=== PATIENT | female | born 1955 | race Caucasian/White ===

== ENCOUNTER 2020-08-05 09:55 | Outpatient (CLI) | payer MEDICARE ==
--- NOTE | 2020-08-05 12:01 | CT ---
CHEST CT WITH CONTRAST ABDOMEN CT WITH CONTRAST PELVIC CT WITH CONTRAST: HISTORY: Lumpectomy. Status post radiation and chemotherapy. Stage IV breast cancer. Correlation: None. COMPARISON: None. FINDINGS: Chest CT: Mediastinum: No mass, lymphadenopathy or hematoma. Aorta: Normal caliber aorta. No periaortic fat stranding. Heart: Normal heart size. No significant pericardial fluid. Small amount of anterior pericardial flui d is noted. Trachea and central bronchi: Patent. Pleural spaces: No significant pleural fluid. Right lung: Minimal dependent atelectatic changes. No suspicious masses or consolidation. Left lung:Minimal dependent atelectatic changes. There is bronchiectasis and increased soft tissue pr ominence involving the anterior left upper lobe. Post treatment changes are favored. Pneumothorax: None. Soft tissues: There is evidence of asymmetric edema and calcifications overlying the left breast pare nchyma as well as the dermis of the left breast. There is asymmetric increased soft tissue density deep to the left breast, along the expected region of the left pectoralis muscle. Abdomen CT: Gallbladder: Cholelithiasis without evidence of cholecystitis. Portal vein: Patent. Liver: Appropriate enhancement.. Spleen: Appropriate enhancement. Pancreas: Appropriate enhancement. Adrenal glands: Appropriate enhancement. Lymphadenopathy: No gastrohepatic, retrocrural or periportal lymphadenopathy. Kidneys: Symmetric enhancement. No obstructive uropathy. Mesentery: No mass, lymphadenopathy, free air or free fluid. Alimentary canal: Limited evaluation by the absence of oral contrast. No evidence of a bowel obstruct ion. Normal caliber appendix. Pelvis CT: No mass, lymphadenopathy, free air or free fluid. Urinary bladder is unremarkable. Uterus is surgically absent. Osseous structures: There are extensive destructive changes and fractures involving the anterior left first through eight h ribs. Additional erosive and destructive changes are noted in the medial left clavicle. Findings may represent post traumatic change versus osteonecrosis from radiation treatment. There is also irre gularity and sclerosis involving the left scapula. No evidence of a metastatic deposit in the thoracic or lumbar spine. No evidence of metastases within the bony pelvis. IMPRESSION: Evidence of left breast cancer with thickening of the dermis. Correlate for inflammatory breast cance r. There are abnormal soft tissue densities in the deep to the left breast at the region of the left pectoralis muscle with irregular appearance of multiple left ribs. Findings may represent posttr eatment or posttraumatic change.
[2020-08-05] MEDS ORDERED: Iopamidol 370 76% 100 ML VIAL ONE (13:50)
--- NOTE | 2020-08-05 14:37 | NM ---
NUCLEAR MEDICINE WHOLE BODY BONE SCAN: HISTORY: Stage IV breast cancer. Status post radiation therapy and chemotherapy. TECHNIQUE: Patient was administered 32.1 mCi of technetium 99m MDP intravenously. After 3 hour delay, whole body imaging was performed. COMPARISON: Prior images were performed in [place] and are not available. FINDINGS: Physiologic distribution of radiotracer. There is uptake in both shoulders. There is irregular radiot racer localization in the left hemithorax including the left scapula, left ribs and left clavicle. Correlation made with CT performed earlier today demonstrates erosive changes and remodeling. Multipl e old fractures are identified. Uptake in the right shoulder, due to degenerative change. Uptake in the right knee is also felt to be due to degenerative change. Mild uptake in the distal lumbar spine corresponds to degenerative changes with vacuum disc phenomeno n, osteophyte formation and endplate sclerosis. No scintigraphic evidence of a thoracic or lumbar spine metastatic deposit. IMPRESSION: 1. Extensive irregular radiotracer localization in the left hemithorax is presumed to be due to post treatment change. 2. No evidence of metastatic deposit in the remaining osseous structures. Transcribed Date/Time: 08/05/2020 3:16 PM
== END 2020-08-05 09:56 | disposition home or self-care (01) ==
LOC: CT 09:55 → NM 09:56
PROVIDERS: ATTEND Internal Medicine Hematology & Oncology
DX: C50.412 Malignant neoplasm of upper-outer quadrant of left female breast (principal); R92.2 Inconclusive mammogram; R93.89 Abnormal findings on diagnostic imaging of other specified body structures
CPT/HCPCS: 71260; 74177; 78306; A9503

== ENCOUNTER 2020-08-06 14:43 | Outpatient (CLI) | payer MEDICARE | END 2020-08-06 14:44 | disposition home or self-care (01) | LOC: ULT 14:43 | PROVIDERS: ATTEND Internal Medicine Hematology & Oncology | DX: Z51.11 Encounter for antineoplastic chemotherapy (principal); C50.412 Malignant neoplasm of upper-outer quadrant of left female breast; I08.1 Rheumatic disorders of both mitral and tricuspid valves; Z79.899 Other long term (current) drug therapy | CPT/HCPCS: 82565; 93306 ==

== ENCOUNTER 2020-10-30 09:55 | Outpatient (CLI) | payer MEDICARE | END 2020-10-30 09:56 | disposition home or self-care (01) | LOC: BICMAMMO 09:55 | PROVIDERS: ATTEND Internal Medicine Hematology & Oncology | DX: Z12.31 Encounter for screening mammogram for malignant neoplasm of breast (principal) | CPT/HCPCS: 77063; 77067 ==

== ENCOUNTER 2020-11-17 13:21 | Outpatient (CLI) | payer MEDICARE | END 2020-11-17 13:22 | disposition home or self-care (01) | LOC: ULT 13:21 | PROVIDERS: ATTEND Internal Medicine Hematology & Oncology | DX: Z51.11 Encounter for antineoplastic chemotherapy (principal); C50.412 Malignant neoplasm of upper-outer quadrant of left female breast; Z79.899 Other long term (current) drug therapy; I07.1 Rheumatic tricuspid insufficiency | CPT/HCPCS: 93306 ==

== ENCOUNTER 2021-11-26 09:00 | Outpatient (CLI) | payer MEDICARE | END 2021-11-26 09:01 | disposition home or self-care (01) | LOC: CT 09:00 | PROVIDERS: ATTEND Internal Medicine Hematology & Oncology | DX: C50.412 Malignant neoplasm of upper-outer quadrant of left female breast (principal) | CPT/HCPCS: 71260; 74177; 78306; 82565; A9503 ==

== ENCOUNTER 2021-12-25 12:28 | Outpatient (CLI) | payer MEDICARE | END 2021-12-25 12:29 | disposition home or self-care (01) | LOC: BICMAMMO 12:28 | PROVIDERS: ATTEND Internal Medicine Hematology & Oncology | DX: Z12.31 Encounter for screening mammogram for malignant neoplasm of breast (principal); Z85.3 Personal history of malignant neoplasm of breast; Z98.890 Other specified postprocedural states | CPT/HCPCS: 77063; 77067 ==

== ENCOUNTER 2022-03-26 15:21 | Emergency (ER) | payer MEDICARE ==
[2022-03-26 16:41] LABS: #Basophils 0.1 thou/uL (0.0-0.2); #Eosinphils 0.1 thou/uL (0.0-0.7); #Lymphocytes 1.1 thou/uL (1.20-3.40); #Monocytes 0.4 thou/uL (0.11-0.59); #Neutrophils 3.2 thou/uL (1.40-6.50); %Basophils 1.2 % (0.0-1.0); %Lymphocytes 22.3 % (21.0-51.0); %Monocytes 8.2 % (0.0-10.0); %Neutrophils 67.3 % (42.0-75.0); Hemoglobin 10.4 g/dL (12.0-16.0); Mean Corpuscular Hemoglobin 29.1 pg (27.0-31.0); Mean Corpuscular Volume 85.6 fL (78.0-98.0); Platelet Count 262 thou/uL (130-400); RBC Distribution Width 11.8 % (11.5-14.5); Red Blood Cell (RBC) Count 3.57 mill/uL (4.20-5.40); White Blood Cell (WBC) Count 4.8 thou/uL (4.8-10.8)
[2022-03-26 17:28] LABS: ALT (SGPT) 17 U/L (8-55); AST (SGOT) 18 U/L (5-34); Albumin 4.4 g/dL (3.4-4.8); Alkaline Phosphatase 52 U/L (40-110); Anion Gap 15 mmol/L (10-20); BUN (Urea Nitrogen) 19 mg/dL (9.8-20.1); Bilirubin, Total 0.3 mg/dL (0.2-1.2); Calc. Creatinine Clearance 0 mL/min (70-130); Calcium 9.7 mg/dL (7.8-10.44); Carbon Dioxide 25 mmol/L (23-31); Chloride 92 mmol/L (98-107); Estimated GFR 62; Globulin 2.8 g/dL (2.4-3.5); Glucose 175 mg/dL (80-115); Potassium 4.2 mmol/L (3.5-5.1); Protein, Total 7.2 g/dL (5.8-8.1); Sodium 128 mmol/L (136-145)
[2022-03-26] MEDS ORDERED: Acetaminophen 500 MG TAB ONE ×2 (17:55)
[2022-03-26] MEDS ORDERED: Acetaminophen 325 MG TAB ONE (18:02)
== END 2022-03-26 19:53 | disposition home or self-care (01) ==
LOC: ERS 15:21
DX: M79.89 Other specified soft tissue disorders (principal); E11.9 Type 2 diabetes mellitus without complications; I10 Essential (primary) hypertension; Z79.84 Long term (current) use of oral hypoglycemic drugs; Z79.899 Other long term (current) drug therapy
CPT/HCPCS: 36415; 80053; 85025; 85379

== ENCOUNTER 2022-06-14 13:00 | Outpatient (CLI) | payer MEDICARE | END 2022-06-14 13:01 | disposition home or self-care (01) | LOC: RAD 13:00 | PROVIDERS: ATTEND Nurse Practitioner Acute Care | DX: Z45.2 Encounter for adjustment and management of vascular access device (principal); T82.598A Other mechanical complication of other cardiac and vascular devices and implants, initial encounter; C50.412 Malignant neoplasm of upper-outer quadrant of left female breast; D50.0 Iron deficiency anemia secondary to blood loss (chronic) | CPT/HCPCS: 36598; J1642 ==

== ENCOUNTER 2022-08-10 15:14 | Outpatient (CLI) | payer MEDICARE ==
[2022-08-10 16:38] LABS: #Eosinphils 0.1 10x3/uL (0.0-0.5); #Monocytes 0.4 10x3/uL (0.0-1.1); %Basophils 0.8 % (0.0-2.0); %Eosinophils 2.2 % (0.0-6.0); %Monocytes 7.8 % (0.0-10.0); %Neutrophils 60.8 % (40.0-75.0); Hemoglobin 10.8 g/dL (12.0-15.5); Mean Corpuscular HGB CONC 34.5 g/dL (32.0-36.0); Mean Corpuscular Hemoglobin 28.7 pg (27.0-33.0); Mean Corpuscular Volume 83.2 fl (81.6-98.3); Mean Platelet Volume 9.7 fl (7.4-10.4); Platelet Count 279 10x3/uL (150-450); RBC Distribution Width 13.5 % (11.5-14.5); Red Blood Cell (RBC) Count 3.76 10x6/uL (3.90-5.03); White Blood Cell (WBC) Count 4.9 10x3/uL (3.5-10.5)
[2022-08-10 17:01] LABS: Anion Gap 17 mmol/L (10-20); BUN (Urea Nitrogen) 20 mg/dL (9.8-20.1); Calc. Creatinine Clearance 0 mL/min (70-130); Calcium 9.7 mg/dL (7.8-10.44); Carbon Dioxide 21 mmol/L (23-31); Estimated GFR 61; Glucose 153 mg/dL (80-115); Potassium 4.2 mmol/L (3.5-5.1)
[2022-08-10 17:53] LABS: Chloride 101 mmol/L (98-107); Sodium 135 mmol/L (136-145)
== END 2022-08-10 15:15 | disposition home or self-care (01) ==
LOC: LABBT 15:14
PROVIDERS: ATTEND Specialist
DX: Z01.818 Encounter for other preprocedural examination (principal); C50.912 Malignant neoplasm of unspecified site of left female breast
CPT/HCPCS: 80048; 85025; 93005; 93010

== ENCOUNTER 2022-10-06 12:38 | Outpatient (CLI) | payer MEDICARE, OTHER ==
[2022-10-06 14:16] LABS: Anion Gap 17 mmol/L (10-20); BUN (Urea Nitrogen) 21 mg/dL (9.8-20.1); Calc. Creatinine Clearance 0 mL/min (70-130); Calcium 9.6 mg/dL (7.8-10.44); Carbon Dioxide 20 mmol/L (23-31); Chloride 98 mmol/L (98-107); Estimated GFR 63; Glucose 146 mg/dL (80-115); Potassium 4.4 mmol/L (3.5-5.1); Sodium 131 mmol/L (136-145)
[2022-10-06 14:19] LABS: #Eosinphils 0.1 10x3/uL (0.0-0.5); #Monocytes 0.3 10x3/uL (0.0-1.1); #Neutrophils 3.1 10x3/uL (1.5-8.4); %Basophils 0.7 % (0.0-2.0); %Eosinophils 2.1 % (0.0-6.0); %Monocytes 6.2 % (0.0-10.0); %Neutrophils 71.5 % (40.0-75.0); Hemoglobin 10.6 g/dL (12.0-15.5); Mean Corpuscular HGB CONC 33.2 g/dL (32.0-36.0); Mean Corpuscular Hemoglobin 27.7 pg (27.0-33.0); Mean Corpuscular Volume 83.5 fl (81.6-98.3); Mean Platelet Volume 10.8 fl (7.4-10.4); Platelet Count 235 10x3/uL (150-450); RBC Distribution Width 13.1 % (11.5-14.5); Red Blood Cell (RBC) Count 3.82 10x6/uL (3.90-5.03); White Blood Cell (WBC) Count 4.4 10x3/uL (3.5-10.5)
== END 2022-10-06 12:39 | disposition home or self-care (01) ==
LOC: LABBT 12:38
PROVIDERS: ATTEND Specialist
DX: Z01.818 Encounter for other preprocedural examination (principal); C50.912 Malignant neoplasm of unspecified site of left female breast
CPT/HCPCS: 71046; 80048; 85025; 93005; 93010

== ENCOUNTER 2022-10-08 10:31 | Day surgery (SDC) | payer MEDICARE, OTHER ==
[2022-10-06 12:02] VITALS: BMI 27.1
[2022-10-08] MEDS ORDERED: Ketorolac Tromethamine 30 MG/ML VIAL ONE (10:55)
[2022-10-08] MEDS ORDERED: Acetaminophen 500 MG TAB ONE (10:55)
[2022-10-08] MEDS ORDERED: fentaNYL PF 100 MCG/2 ML SYRINGE ONE (11:31)
[2022-10-08] MEDS ORDERED: Bupivacaine/Epinephrine 0.25% 30 ML VIAL ONE (11:57)
[2022-10-08] MEDS ORDERED: Lidocaine 1% (PF) 30 ML VIAL ONE (11:57)
[2022-10-08] MEDS ORDERED: CEFAZOLIN 2 GM VIAL ONE (12:20)
[2022-10-08] MEDS ORDERED: Sodium Chloride 0.9% 100 ML ONE (12:20)
== END 2022-10-08 15:26 | disposition home or self-care (01) ==
LOC: SDC 10:31
PROVIDERS: ATTEND Specialist
PROC: 0JH60WZ Insertion of Totally Implantable Vascular Access Device into Chest Subcutaneous Tissue and Fascia, Open Approach (ICD-10-PCS; principal; 2022-10-08)
PROC: 02HV33Z Insertion of Infusion Device into Superior Vena Cava, Percutaneous Approach (ICD-10-PCS; 2022-10-08)
DX: C50.912 Malignant neoplasm of unspecified site of left female breast (principal); C79.9 Secondary malignant neoplasm of unspecified site; E11.9 Type 2 diabetes mellitus without complications; Z17.1 Estrogen receptor negative status [ER-]; Z87.891 Personal history of nicotine dependence; Z79.84 Long term (current) use of oral hypoglycemic drugs; Z79.890 Hormone replacement therapy; Z79.899 Other long term (current) drug therapy
CPT/HCPCS: 71045; C1788; J1642; J1885; J2001; J3490

== ENCOUNTER 2022-11-26 09:42 | Outpatient (CLI) | payer MEDICARE, OTHER ==
[2022-11-26] MEDS ORDERED: Iopamidol 370 76% 100 ML VIAL ONE (10:54)
== END 2022-11-26 09:43 | disposition home or self-care (01) ==
LOC: NM 09:42
PROVIDERS: ATTEND Internal Medicine Hematology & Oncology
DX: C50.412 Malignant neoplasm of upper-outer quadrant of left female breast (principal); D50.0 Iron deficiency anemia secondary to blood loss (chronic)
CPT/HCPCS: 71260; 74177; 78306; 82565; A9503; J1642; Q9967

== ENCOUNTER 2023-02-21 09:49 | Outpatient (CLI) | payer MEDICARE, OTHER | END 2023-02-21 09:50 | disposition home or self-care (01) | LOC: BICMAMMO 09:49 | PROVIDERS: ATTEND Internal Medicine Hematology & Oncology | DX: Z12.31 Encounter for screening mammogram for malignant neoplasm of breast (principal); Z13.820 Encounter for screening for osteoporosis; T38.6X5A Adverse effect of antigonadotrophins, antiestrogens, antiandrogens, not elsewhere classified, initial encounter; M85.89 Other specified disorders of bone density and structure, multiple sites; Z85.3 Personal history of malignant neoplasm of breast; Z98.890 Other specified postprocedural states | CPT/HCPCS: 77063; 77067; 77080 ==

== ENCOUNTER 2023-12-06 01:20 | Observation (INO) | payer MEDICARE, OTHER ==
[2023-12-06] MEDS ORDERED: Acetaminophen 500 MG TAB ONE (02:12)
[2023-12-06] MEDS ORDERED: Ibuprofen 800 MG TAB ONE (02:12)
[2023-12-06] MEDS ORDERED: predniSONE 20 MG TAB ONE (02:24)
[2023-12-06 02:48] LABS: Influenza A by NAA Not Detected (NotDetected); Influenza B by NAA Not Detected (NotDetected); SARS-CoV-2 NAA Rapid Test Not Detected (NotDetected)
[2023-12-06 03:06] LABS: #Basophils 0.03 10x3/uL (0.0-0.2); %Basophils 0.5 % (0.0-1.0); %Eosinophils 2.1 % (0.0-10.0); %Lymphocytes 14.7 % (21.0-51.0); %Monocytes 13.9 % (0.0-10.0); %Neutrophils 68.3 % (42.0-75.0); Hematocrit 27.9 % (36.0-47.0); Hemoglobin 9.7 g/dL (12.0-16.0); Mean Corpuscular HGB CONC 34.8 g/dL (32.0-36.0); Mean Corpuscular Hemoglobin 29.1 pg (27.0-31.0); Mean Corpuscular Volume 83.8 fL (78.0-98.0); Mean Platelet Volume 8.7 fL (7.4-10.4); Platelet Count 274 10x3/uL (130-400); RBC Distribution Width 12.7 % (11.5-14.5); Red Blood Cell (RBC) Count 3.33 mill/uL (4.20-5.40)
[2023-12-06 03:07] LABS: Bilirubin Negative (Negative); Blood, Urine Negative (Negative); Clarity Clear (Clear); Glucose, Urine (Dipstick) 100 mg/dL (Negative); Ketone, Urine Negative (Negative); Leukocyte Negative (Negative); Nitrite Negative (Negative); Protein, Urine (Dipstick) Negative (Neg-Trace); Urobilinogen 0.2 mg/dL (Less than 2)
[2023-12-06 03:09] LABS: Specific Gravity, Urine 1.005 (1.002-1.036)
[2023-12-06 03:24] LABS: ALT (SGPT) 44 U/L (8-55); AST (SGOT) 40 U/L (5-34); Albumin 4.1 g/dL (3.4-4.8); Alkaline Phosphatase 122 U/L (40-110); Anion Gap 15 mmol/L (10-20); BUN (Urea Nitrogen) 17 mg/dL (9.8-20.1); Bilirubin, Total 0.4 mg/dL (0.2-1.2); Calc. Creatinine Clearance 0 mL/min (70-130); Calcium 9.7 mg/dL (7.8-10.44); Carbon Dioxide 22 mmol/L (23-31); Chloride 91 mmol/L (98-107); Estimated GFR 69; Globulin 3.4 g/dL (2.4-3.5); Glucose 214 mg/dL (80-115); Potassium 4.3 mmol/L (3.5-5.1); Protein, Total 7.5 g/dL (5.8-8.1); Sodium 124 mmol/L (136-145)
[2023-12-06 03:27] LABS: Troponin I Less than 0.010 ng/mL (< 0.028)
[2023-12-06] MEDS ORDERED: Doxycycline 100 MG CAP ONE (04:05)
[2023-12-06] MEDS ORDERED: cefTRIAXone (ROCEPHIN) 1 GM VIAL ONE (04:13)
[2023-12-06] MEDS ORDERED: Sodium Chloride 0.9% 100 ML ONE (04:13)
[2023-12-06] MEDS ORDERED: Ondansetron PF 4 MG/2 ML Vial IVP PRN (04:45)
[2023-12-06] MEDS ORDERED: Ondansetron ODT 4 MG TAB SL PRN (04:45)
[2023-12-06] MEDS ORDERED: Acetaminophen 325 MG TAB PO PRN (04:45)
[2023-12-06 05:53] VITALS: BMI 27.1
[2023-12-06] MEDS ORDERED: HumaLOG 300 UNITS/3 ML VIAL SC PRN (06:26)
[2023-12-06] MEDS ORDERED: Glucagon 1 MG/ML KIT IM PRN (06:26)
[2023-12-06] MEDS ORDERED: Dextrose 50% Abboject 50 ML SYRINGE SLOW IVP PRN (06:26)
[2023-12-06] MEDS ORDERED: Dextrose 5% in Water 1,000 ML IV PRN (06:26)
[2023-12-06] MEDS: metFORMIN 500 MG TAB PO SCH (09:10)
[2023-12-06] MEDS: Losartan 25 MG TAB PO SCH (09:11)
[2023-12-06] MEDS: Azithromycin 500 MG in Sodium Chloride 0.9% 250 ML 250 ML IVPB SCH (09:11)
[2023-12-06] MEDS: glipiZIDE 10 MG TAB PO SCH ×2 (09:11→16:27)
[2023-12-06] MEDS: FLUoxetine HCl 10 MG CAP PO SCH (09:11)
[2023-12-06 09:18] LABS: Anion Gap 15 mmol/L (10-20); BUN (Urea Nitrogen) 16 mg/dL (9.8-20.1); Calc. Creatinine Clearance 54 mL/min (70-130); Calcium 9.8 mg/dL (7.8-10.44); Carbon Dioxide 23 mmol/L (23-31); Chloride 92 mmol/L (98-107); Critical Call Chemistry NUR.CFLEY.t; Estimated GFR 54; Glucose 418 mg/dL (80-115); Potassium 4.9 mmol/L (3.5-5.1); Sodium 125 mmol/L (136-145)
[2023-12-06] MEDS ORDERED: Iopamidol-370 76% 500 ML MDV (1 ML CHARGE) ONE (10:47)
[2023-12-06] MEDS: HumaLOG 300 UNITS/3 ML VIAL SC PRN ×2 (12:34→17:40)
[2023-12-06] MEDS ORDERED: Doxycycline 100 MG in Sodium Chloride 0.9% 100 ML IVPB SCH (16:00)
[2023-12-06] MEDS: Atorvastatin Calcium 20 MG TAB PO SCH (20:29)
[2023-12-06] MEDS: Insulin Glargine 30 UNITS/0.3 ML VIAL SC SCH (20:30)
[2023-12-07] MEDS: Acetaminophen 325 MG TAB PO PRN (00:44)
[2023-12-07] MEDS: cefTRIAXone\\ROCEPHIN 1 GM in Sodium Chloride 0.9% 100 ML IVPB SCH (03:49)
[2023-12-07] MEDS: Levothyroxine Sodium 25 MCG TAB PO SCH (05:11)
[2023-12-07 06:04] LABS: #Basophils 0.04 10x3/uL (0.0-0.2); %Basophils 0.5 % (0.0-1.0); %Eosinophils 1.8 % (0.0-10.0); %Lymphocytes 17.9 % (21.0-51.0); %Monocytes 14.6 % (0.0-10.0); %Neutrophils 64.2 % (42.0-75.0); Hematocrit 27.4 % (36.0-47.0); Hemoglobin 9.5 g/dL (12.0-16.0); Mean Corpuscular HGB CONC 34.7 g/dL (32.0-36.0); Mean Corpuscular Hemoglobin 28.4 pg (27.0-31.0); Mean Corpuscular Volume 81.8 fL (78.0-98.0); Mean Platelet Volume 8.7 fL (7.4-10.4); Platelet Count 329 10x3/uL (130-400); RBC Distribution Width 12.9 % (11.5-14.5); Red Blood Cell (RBC) Count 3.35 mill/uL (4.20-5.40)
[2023-12-07 06:16] LABS: Anion Gap 15 mmol/L (10-20); BUN (Urea Nitrogen) 19 mg/dL (9.8-20.1); Calc. Creatinine Clearance 60 mL/min (70-130); Calcium 9.4 mg/dL (7.8-10.44); Carbon Dioxide 25 mmol/L (23-31); Chloride 92 mmol/L (98-107); Estimated GFR 61; Glucose 87 mg/dL (80-115); Potassium 3.7 mmol/L (3.5-5.1); Sodium 128 mmol/L (136-145)
[2023-12-07] MEDS ORDERED: Guaifenesin DM 100-10/5 ML UDCUP PO PRN (08:19)
[2023-12-07 08:47] VITALS: BP 134/80; TEMP 98.1
[2023-12-07] MEDS: Benzonatate 100 MG CAP PO SCH (08:53)
[2023-12-07] MEDS: Azithromycin 250 MG TAB PO SCH (11:26)
[2023-12-08] MEDS ORDERED: Azithromycin 250 MG TAB PO SCH (09:00)
== END 2023-12-07 12:05 | disposition home or self-care (01) ==
LOC: ERS 01:20 → T4-A 04:30
PROVIDERS: ADMIT Student in an Organized Health Care Education/Training Program; ATTEND Hospitalist
DX: J18.9 Pneumonia, unspecified organism (principal); E87.1 Hypo-osmolality and hyponatremia; E11.9 Type 2 diabetes mellitus without complications; I10 Essential (primary) hypertension; Z79.84 Long term (current) use of oral hypoglycemic drugs; Z79.890 Hormone replacement therapy; Z79.899 Other long term (current) drug therapy; Z85.3 Personal history of malignant neoplasm of breast; Z98.890 Other specified postprocedural states
CPT/HCPCS: 0240U; 71045; 71275; 80048 ×2; 80053; 81001; 82962 ×2; 83605; 83880; 84145; 84484; 85025 ×2; 86141; 93005; 96374; 96376; 99285; G0378 ×3; J0456 ×2; 36415; 36416; 96375; J0696; J1815; J3490; J7050; J7512; Q9967

== ENCOUNTER 2024-01-11 08:36 | Outpatient (CLI) | payer MEDICARE, OTHER | END 2024-01-11 08:37 | disposition home or self-care (01) | LOC: NM 08:36 | PROVIDERS: ATTEND Internal Medicine Hematology & Oncology | DX: C50.412 Malignant neoplasm of upper-outer quadrant of left female breast (principal); R94.8 Abnormal results of function studies of other organs and systems | CPT/HCPCS: 71260; 74177; 78306; 82565; A9503 ==

== ENCOUNTER 2024-05-02 08:06 | Outpatient (CLI) | payer MEDICARE, OTHER | END 2024-05-02 08:07 | disposition home or self-care (01) | LOC: BICMAMMO 08:06 | PROVIDERS: ATTEND Internal Medicine Hematology & Oncology | DX: Z12.31 Encounter for screening mammogram for malignant neoplasm of breast (principal); D50.0 Iron deficiency anemia secondary to blood loss (chronic); M81.0 Age-related osteoporosis without current pathological fracture; M85.851 Other specified disorders of bone density and structure, right thigh; M85.852 Other specified disorders of bone density and structure, left thigh; T38.6X5A Adverse effect of antigonadotrophins, antiestrogens, antiandrogens, not elsewhere classified, initial encounter; Z85.3 Personal history of malignant neoplasm of breast; Z98.890 Other specified postprocedural states | CPT/HCPCS: 77063; 77067; 77080 ==